=== PATIENT | female | born 1940 | race Caucasian/White ===

== ENCOUNTER 2016-09-16 22:23 | Emergency (ER) | payer MEDICARE, OTHER ==
[~2016-09-16 22:23] MED LIST: ASA CHILDREN'S81 MG PO; AVAPRO DPS150 MG PO; BENADRYL-DPS25 MG PO; BETAPACE DPS80 MG PO; CALTRATE-600 D600 MG PO; CENTRUM SILVER1 EAC1 PO; DIGESTIVE ADVA1 EACH PO; ELIQUIS5 MG PO; FISH OIL300 MG PO; LIPITOR DPS40 MG PO; MAGOX 400400 MG PO; OMEPRAZOLE40 MG PO; TYLENOL EXTRA500 M1 PO; ZITHROMAX500 MG PO
--- NOTE | 2016-09-18 00:04 | ER ---
ADMIT: 09/16/2016 RM/LOC: ER [facility] MR#: [id number] [facility] [address] [place], [place] [id number] CECILIO FERRARI [address] [place] [id number] Emergency Room Report SEX: F AGE: 76 : 1940 DATE: 09/16/2016 TIME: 2222 Please refer to my T-sheet for complete H and P. HISTORY OF PRESENT ILLNESS: Briefly, the patient is a 76-year-old who comes in stating that she just does not feel well. She checked her blood pressure, it is little high. She checked it several times, it got higher and higher. She has been kind of anxious and not feeling well ever since. She has vague complaints. States her arms may be a little bit heavy. Does not feel short of breath. No chest pain. She states that it all kind of started after Easter. They had Easter at her house and then she went out to eat [place] and felt nauseous after that, but nausea resolved though. PHYSICAL EXAMINATION: VITAL SIGNS: Her blood pressure was 211/82, pulse 69, respirations 20, temp 98.8, saturating 97%. GENERAL: Slightly anxious. HEENT: Grossly normal. LUNGS: Clear. HEART: Regular. ABDOMEN: Soft. SKIN: No rash. NEUROLOGIC: Alert and oriented, nonfocal. EMERGENCY DEPARTMENT COURSE: I gave her 1 mg of Ativan IV. Her blood pressure improved dramatically. She felt much better. CBC was normal except hemoglobin 11.3 and her last hemoglobin was 10.9. Chemistries normal. Troponin negative. EKG is sinus rhythm, rate 70. No changes. She felt completely resolved. Her last blood pressure was 130/58. She was ready for discharge. ASSESSMENT: 1. High blood pressure. 2. Anxiety, may be secondary to overdoing over the last couple of days. PLAN: Rest. Return if worse. Continue medications. See Henrique Mauricio this week. Ozzie Paz MD/ kelley JOB #: [id number] CC: Ozzie Paz MD, Attending Physician Bev Cox MD, Family Physician
== END 2016-09-16 23:55 | disposition home or self-care (01) ==
LOC: ER 22:23
DX: I10 Essential (primary) hypertension (principal); F41.9 Anxiety disorder, unspecified; Z85.3 Personal history of malignant neoplasm of breast; Z88.0 Allergy status to penicillin; Z88.2 Allergy status to sulfonamides